=== PATIENT | female | born 1990 | race American Indian/Alaskan Native ===

== ENCOUNTER 2017-06-02 11:42 | Emergency (ER) | payer SELFPAY ==
[2017-06-02 12:42] VITALS: BP 115/79
--- NOTE | 2017-06-02 13:31 | XRay Report ---
Left forearm 2 views: History: Injury. Findings: No fracture, periosteal reaction or lytic lesion. There is very faint circumscribed density identified overlying the distal radius, radial aspect, approximately 5 cm proximal to articular cartilage probably an artifact. Other possibility could be old injury or benign bony neoplasm. Clinical correlation and if necessary further evaluation advised. Impression: No evidence of acute fracture. Additional findings as detailed above.
[2017-06-02] MEDS ORDERED: FLEXERIL PO ONE (14:26)
[2017-06-02] MEDS ORDERED: TORADOL IM ONE (14:26)
--- NOTE | 2017-06-02 14:30 | Emergency Department Report ---
HPI - General Chief Complaint: Extremity Injury, Upper Time Seen by Provider: 06/02/17 14:03 - HPI HPI: 27-year-old female presents today complaining of left arm pain post falling on left arm last night. Denies head injury or loss of consciousness. Denies neck or back pain. Patient states that there was a large opening a box on the floor and the proximal aspect of her left arm hit the box. With the pain as a 8-10 constant, sharp, throbbing pain. Denies numbness, weakness, paresthesias. Try Tylenol with minimal relief. Denies fever, chills, nausea, vomiting, chest pain , shortness of breath, abdominal pain. ED Past Medical Hx - Past Medical History Previous Medical History?: Yes Additional medical history: eptopic preg - Surgical History Past Surgical History?: No - Social History Smoking Status: Never Smoker Substance Use Type: None - Medications Home Medications: Home Medications Medication Instructions Recorded Confirmed Last Taken Type Cyclobenzaprine [Flexeril] 10 mg PO TID PRN #15 tablet 06/02/17 Unknown Rx Naproxen [Naprosyn] 500 mg PO BID #20 tablet 06/02/17 Unknown Rx ED Review of Systems ROS: Stated complaint: LEFT ARM INJURY Other details as noted in HPI Constitutional: denies: chills, fever, malaise Eyes: denies: eye pain ENT: denies: ear pain, throat pain, congestion Respiratory: denies: cough, shortness of breath, wheezing Cardiovascular: denies: chest pain, palpitations Endocrine: no symptoms reported Gastrointestinal: denies: abdominal pain, nausea, vomiting Musculoskeletal: joint swelling, arthralgia Neurological: denies: headache, weakness, numbness, paresthesias Physical Exam - Physical Exam Vital Signs: Vital Signs 06/02/17 12:37 Temperature 98.4 F Pulse Rate 62 Respiratory 16 Rate Blood Pressure 115/79 O2 Sat by Pulse 97 Oximetry Physical Exam: GENERAL: The patient is well-developed and well-nourished. Patient is in NAD. HEAD: Normocephalic. Atraumatic. NECK: Supple, nontender, without lymphadenopathy. No vertebral or paraspinal tenderness to palpation. CHEST/LUNGS: Clear to auscultation throughout. HEART/CARDIOVASCULAR: Regular rate and rhythm. No murmurs, rubs or gallops. ABDOMEN: Abdomen is soft, nontender. Bowel sounds normoactive. No guarding or rebound tenderness. LEFT UPPER EXTREMITY: Full elbow, wrist, digits and range of motion. Mild induration, erythema and tenderness to palpation noted over the ulnar aspect proximal forearm. No deformity or crepitus noted. Normal sensation. 2 point discrimination intact. Peripheral pulses intact. Capillary refill less than 2 seconds. NEURO: Alert and oriented x 3. Normal gait. ED Course Vital Signs 06/02/17 12:37 Temperature 98.4 F Pulse Rate 62 Respiratory 16 Rate Blood Pressure 115/79 O2 Sat by Pulse 97 Oximetry ED Medical Decision Making - Lab Data Vital Signs 06/02/17 06/02/17 12:37 14:35 Temperature 98.4 F Pulse Rate 62 Respiratory 16 18 Rate Blood Pressure 115/79 O2 Sat by Pulse 97 Oximetry - Radiology Data Radiology results: report reviewed Left forearm 2 views: History: Injury. Findings: No fracture, periosteal reaction or lytic lesion. There is very faint circumscribed density identified overlying the distal radius, radial aspect, approximately 5 cm proximal to articular cartilage probably an artifact. Other possibility could be old injury or benign bony neoplasm. Clinical correlation and if necessary further evaluation advised. Impression: No evidence of acute fracture. Additional findings as detailed above. - Medical Decision Making 27-year-old female presents today complaining of left forearm pain post fall. Her x-ray results revealed no acute findings. X-rays results discussed with patient, referral for orthopedic has been provided. Patient is in no acute distress at this time. She will be discharged home and is encouraged to follow up with a primary care provider. She will be sent home on Flexeril and naproxen and is encouraged to return to the emergency room for any worsening symptoms. Critical care attestation.: If time is entered above; I have spent that time in minutes in the direct care of this critically ill patient, excluding procedure time. ED Disposition Clinical Impression: Arm contusion Qualifiers: Encounter type: initial encounter Laterality: left Qualified Code(s): S40.022A - Contusion of left upper arm, initial encounter Disposition: - TO HOME OR SELFCARE Is pt being admited?: No Does the pt Need Aspirin: No Condition: Stable Instructions: Contusion in Adults (ED), Muscle Strain (ED) Additional Instructions: Follow-up with primary care provider. Return to the emergency department if symptoms worsen. Prescriptions: Cyclobenzaprine [Flexeril] 10 mg PO TID PRN #15 tablet PRN Reason: Muscle Spasm Naproxen [Naprosyn] 500 mg PO BID #20 tablet Referrals: PRIMARY CAREMD [Primary Care Provider] - 3-5 Days GENE LUCIANO MD [Staff Physician] - 3-5 Days Forms: Work/School Release Form(ED) Time of Disposition: 15:05
== END 2017-06-02 15:34 | disposition home or self-care (01) ==
LOC: ED 11:42
DX: S40.022A Contusion of left upper arm, initial encounter (principal); W18.30XA Fall on same level, unspecified, initial encounter; Y93.89 Activity, other specified; Y92.89 Other specified places as the place of occurrence of the external cause; Y99.8 Other external cause status
CPT/HCPCS: 73090; 96372; 99283; J1885

== ENCOUNTER 2018-02-19 21:12 | Emergency (ER) | payer SELFPAY ==
[2018-02-19 21:40] VITALS: BP 109/80
[2018-02-20] MEDS ORDERED: MOTRIN PO ONE (01:36)
[2018-02-20] MEDS ORDERED: CLEOCIN PO ONE (01:36)
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
== END 2018-02-20 01:50 | disposition home or self-care (01) ==
LOC: ED 21:12
DX: L03.113 Cellulitis of right upper limb (principal); F17.200 Nicotine dependence, unspecified, uncomplicated; Z88.2 Allergy status to sulfonamides; Z88.8 Allergy status to other drugs, medicaments and biological substances
CPT/HCPCS: 99282

== ENCOUNTER 2018-02-26 22:21 | Emergency (ER) | payer SELFPAY | END 2018-02-26 23:05 | disposition left against medical advice (07) | LOC: ED 22:21 | DX: R20.0 Anesthesia of skin (principal); Z53.21 Procedure and treatment not carried out due to patient leaving prior to being seen by health care provider ==